=== PATIENT | female | born 1975 ===

== ENCOUNTER 2023-01-13 07:57 | Day surgery (SDC) | payer OTHER ==
[~2023-01-13] VITALS: Ht 167.6 cm; Wt 89.4 kg
[~2023-01-13 07:57] MED LIST: CHILDREN'S ASPI81 MG PO; LIPITOR20 MG PO; LOSARTAN-HCTZ1 EACH PO; PEPCID40 MG PO
[2023-01-13] MEDS ORDERED: PERCOCET 5-3251 EACH PO (12:46)
== END 2023-01-13 17:20 | disposition home or self-care (01) ==
LOC: CIR.AMB 07:57
PROVIDERS: ATTEND Surgery
DX: E04.1 Nontoxic single thyroid nodule (principal); E06.3 Autoimmune thyroiditis; R59.0 Localized enlarged lymph nodes; I10 Essential (primary) hypertension; Z20.822 Contact with and (suspected) exposure to COVID-19